=== PATIENT | male | born 1970 | race Two or more races ===

== ENCOUNTER 2020-03-22 19:26 | Emergency (ER) | payer SELFPAY ==
[~2020-03-22] VITALS: Ht 170.2 cm; Wt 74.8 kg
[2020-03-22 21:48] VITALS: BP 120/78
== END 2020-03-22 21:41 | disposition home or self-care (01) ==
LOC: EDBD 19:26 → ER 19:29
DX: S09.90XA Unspecified injury of head, initial encounter (principal); S00.03XA Contusion of scalp, initial encounter; S20.212A Contusion of left front wall of thorax, initial encounter; S13.9XXA Sprain of joints and ligaments of unspecified parts of neck, initial encounter; W17.89XA Other fall from one level to another, initial encounter; Y93.89 Activity, other specified; Y92.89 Other specified places as the place of occurrence of the external cause; Y99.8 Other external cause status
CPT/HCPCS: 70450; 71250; 72125